=== PATIENT | female | born 1965 | race Caucasian/White ===

== ENCOUNTER 2020-06-08 13:40 | Outpatient (CLI) | payer BC | END 2020-06-08 13:41 | disposition home or self-care (01) | LOC: CSHMAMMO 13:40 | PROVIDERS: ATTEND Family Medicine | DX: Z12.31 Encounter for screening mammogram for malignant neoplasm of breast (principal) | CPT/HCPCS: 77063; 77067 ==

== ENCOUNTER 2021-08-05 01:12 | Emergency (ER) | payer BC ==
[2021-08-05] MEDS ORDERED: Ondansetron ODT 4 MG TAB ONE (01:58)
== END 2021-08-05 02:01 | disposition home or self-care (01) ==
LOC: CSHERS 01:12
DX: H66.91 Otitis media, unspecified, right ear (principal); J32.9 Chronic sinusitis, unspecified
CPT/HCPCS: 93005; Q0162